=== PATIENT | female | born 1975 | race African-American/Black ===

== ENCOUNTER 2019-08-16 13:11 | Emergency (ER) | payer MEDICAID ==
[~2019-08-16] VITALS: Ht 154.9 cm; Wt 59.0 kg
--- NOTE | 2019-08-16 14:00 | NUR ---
PT BIB [facility] FOR [facility] WITH A PLAN TO RUN INTO TRAFFIC. PT WAS FOUND LYING ON THE GROUND IN [place] SCREAMING. PT STATED THAT SHE USES PCP AND MARIJUANA. PT DENIES TAKING ANY HOME MEDICATIONS.
[2019-08-16 14:09] LABS: BASOPHILS % (AUTO) 1.1 % (0.0-2.0); EOSINOPHILS % (AUTO) 1.1 % (0.0-6.0); HEMATOCRIT 32 % (33-45); HEMOGLOBIN 9.9 g/dL (11.5-14.8); LYMPHOCYTES # (AUTO) 1.6 /CMM (0.8-4.8); MEAN CORPUSCULAR HGB CONC 31 g/dl (31.0-36.0); MEAN CORPUSCULAR VOLUME 78 fL (82-100); MONOCYTES # (AUTO) 0.2 /CMM (0.1-1.30); MONOCYTES % (AUTO) 6.5 % (2.0-12.0); NEUTROPHILS # (AUTO) 1.6 /CMM (1.8-8.9); NEUTROPHILS % (AUTO) 45.3 % (43.0-81.0); PLATELET COUNT (AUTO) 217 /CMM (150-450); RED BLOOD CELL COUNT(AUTO) 4.08 MIL/uL (4.0-5.2); WHITE BLOOD COUNT (AUTO) 3.5 K/uL (4.3-11.0)
--- NOTE | 2019-08-16 14:10 | NUR ---
PT ASKED IF I COULD USE A CATH TO OBTAIN A URINE SAMPLE. STRAIGHT CATH DONE AND URINE SAMPLE SENT TO LAB.
[2019-08-16 14:17] LABS: CALCIUM, SERUM 8.8 mg/dL (8.5-10.1); CARBON DIOXIDE 24 mmol/L (21-32); CHLORIDE 108 mmol/L (98-107); CREATININE 0.8 mg/dL (0.6-1.3); GLUCOSE 142 mg/dL (74-106); POTASSIUM 3.5 mmol/L (3.5-5.1); SODIUM SERUM 145 mmol/L (136-145); UREA NITROGEN, BLOOD 13 mg/dL (7-18)
[2019-08-16 14:23] LABS: ALANINE AMINOTRANSFERASE 16 U/L (12-78); ALBUMIN 3.4 g/dL (3.4-5.0); ALCOHOL, BLOOD < 3 mg/dL (0-0); ALKALINE PHOSPHATASE 57 U/L (46-116); ASPARTATE AMINOTRANSFERASE 18 U/L (15-37); BILIRUBIN,TOTAL 0.1 mg/dL (0.2-1.0); SALICYLATE 4.6 mg/dL (2.8-20.0)
[2019-08-16 14:28] LABS: ACETAMINOPHEN 0 ug/ml (10-30)
--- NOTE | 2019-08-16 14:30 | NUR ---
KHUSHI SHIPMAN BAGGER AND STOCK HANDLER HELPER IS AT THE BEDSIDE SPEAKING TO THE PT.
--- NOTE | 2019-08-16 14:48 | NUR ---
Social service consult requested by MD for voluntary psychiatric admission. Per MD notes, pt is a 43-year-old homeless female with history of schizophrenia presented by rescue ambulance with suicidal ideation. Patient was found inside of [place] when bystanders called 911. Patient states she has a history of schizophrenia but has not been taking her medications. She states that she has been hearing voices in her head telling her to run into traffic. Patient does admit to using PCP and marijuana earlier today. ENGINE GENERATOR ASSEMBLER met with the pt bedside. Pt is alert and oriented x 4. Pt appears unkempt and disheveled. ENGINE GENERATOR ASSEMBLER introduced self and purpose of the visit. Pt denies being homeless and states she resides at [address] [id number]. Pt states she lives alone. Pt was visiting friends in [facility]. Pt reports to have a psychiatric diagnosis of Schizophrenia and is non-compliant with her medications. Pt reports she was taking Zyprexa but she started getting hair loss and stopped taking her medication. Pt reports SI and auditory hallucinations telling her " kill herself." Pt's suicidal plan is to run into traffice. Pt is willing to go voluntary to [facility]. Pt reports, she was hospitalized at [facility] a few weeks ago. Pt uses PCP and marijuana and last used this AM. ENGINE GENERATOR ASSEMBLER contacted Flynn at [facility] to initiate voluntary hospitalization. Per Flynn, they will have a bed for the pt. ENGINE GENERATOR ASSEMBLER to fax clinicals once labs/UDS is available.
[2019-08-16 14:54] LABS: APPEARANCE,URINE CLEAR (CLEAR); BILIRUBIN,URINE NEGATIVE (NEGATIVE); BLOOD, URINE NEGATIVE Ery/uL (NEGATIVE); COLOR,URINE YELLOW (YELLOW); KETONES,URINE NEGATIVE (NEGATIVE); LEUKOCYTE ESTERASE ,URINE NEGATIVE (NEGATIVE); NITRITE, URINE NEGATIVE (NEGATIVE); PROTEIN,URINE NEGATIVE (NEGATIVE); UGLUCOSE NEGATIVE (NEGATIVE); UROBILINOGEN,URINE 0.2 EU/dL (0.2)
--- NOTE | 2019-08-16 15:47 | NUR ---
Clinical referral packet faxed to [facility] intake .
--- NOTE | 2019-08-16 15:47 | NUR ---
[facility] HOUSE MANAGER, FAXED INFO TO MICHAEL FIELDS.
--- NOTE | 2019-08-16 16:16 | NUR ---
FILIBERTO followed up with [facility] intake and spoke with Avi who informed ANUEL that pt. has been referred to [facility]. HEBREW CANTOR informed Avi to have Dominic Pérez f/u with ER.
--- NOTE | 2019-08-16 17:55 | NUR ---
SPOKE TO JAMEE AT [facility]. PT IS GOING TO [facility] [place]. ACCEPTING MD IS DR. REYES. JAMEE NEEDS THE MEDICAL CLEARANCE FROM THE MD RE-FAXED TO HER AT
--- NOTE | 2019-08-16 18:15 | NUR ---
PT REC'D THE DINNER TRAY AND STATED THAT SHE DOES NOT EAT PASTA. DIETARY WAS NOTIFIED. SANDWICHES ARE COMING.
--- NOTE | 2019-08-16 18:27 | NUR ---
PT REC'D A TUNA AND A TURKEY SANDWICH. PT STATED THAT SHE DOES NOT EAT SEAFOOD OR CHICKEN OR PASTA. TUNA SANDWICH WAS REMOVED. PT REC'D JOSETTE CRACKERS, JELLO, AND PUDDING.
--- NOTE | 2019-08-16 18:29 | NUR ---
PT REC'D A MEAL TRAY AND IS TOLERATING PO WELL.
--- NOTE | 2019-08-16 18:49 | NUR ---
MICHAEL WONG CALLED. REPORT TO [phone] UNIT 2 ACCEPTING MD IS ERIC
--- NOTE | 2019-08-16 18:50 | NUR ---
CALLING [facility] RE: TRANSPORT TO [facility].
--- NOTE | 2019-08-16 18:55 | NUR ---
SPEAKING TO FERNANDO ALEX. ETA: [phone] TRIP NUMBER: [id number]
--- NOTE | 2019-08-16 19:45 | NUR ---
REPORT GIVEN TO YOLA HAAS AT [facility].
--- NOTE | 2019-08-16 19:58 | NUR ---
UPDATED ETA 2030
--- NOTE | 2019-08-16 20:29 | NUR ---
PT APPEARS TO BE SLEEPING SOUNDLY, BUT IS EASILY AROUSED. VSS.
[2019-08-16 20:38] VITALS: BP 106/71
== END 2019-08-16 20:42 ==
LOC: ER 13:13
DX: R45.851 Suicidal ideations (principal); F20.9 Schizophrenia, unspecified; D64.9 Anemia, unspecified; F19.10 Other psychoactive substance abuse, uncomplicated; R73.9 Hyperglycemia, unspecified; Z59.0 Homelessness
CPT/HCPCS: 36415; 80048; 80076; 80305; 80307; 80329; 81001; 84703; 85025; 99285; G0480; 81000-TC